=== PATIENT | male | born 1955 | race Caucasian/White ===

== ENCOUNTER 2017-11-25 11:58 | Observation (INO) | payer BC ==
[~2017-11-25] VITALS: Ht 172.7 cm; Wt 131.5 kg
--- NOTE | ~2017-11-25 | H ---
[address] [address] HISTORY AND PHYSICAL Name: SILVIA WOODARD Room: [address] Rosi Isaac#: [id number] Admission: 11/25/17 Attend Phys: Momo Patterson MD Discharge: 11/26/17 Date of : 53 Report #: [id number] THIS REPORT FOR: //name// Please refer to the History and Physical performed in the physician's office. By: 0651Medical Records Staff SUSAN /LIZZETH
[~2017-11-25 11:58] MED LIST: ACETAMINOPHEN-1 EAC1 PO; ADULT LOW DOSE81 MG PO; ARIXTRA; ASPIR 8181 MG PO; ASPIRIN325; BACTRIM DS TAB1 EACH PO; CELEBREX 200 M200 M1; COLACE100 MG; DILTIAZEM ER120 M1; FISH OIL 1,001000 M2 PO; GLUCOPHAGE500 MG OR; LOPRESSOR50 PO; MOBIC15 MG OR; MOBIC15 MG PO; NEURONTIN 300300 M1; NIACIN 500 MG500 M1 OR; NORCO 5-325 TA1 EACH; NORCO 5-325 TA1 EACH PO; OXYIR5 MG; PERCOCET 5-3251 EACH; PROTONIX40 M2 PO; SUPER B COMPLE1 EAC2 PO; TOPROL XL50 MG PO; TRAMADOL 50 MG50 MG PO; TYLENOL ES PO; VITAMIN D3 OR
[2017-11-25 12:46] VITALS: BP 165/79
[2017-11-25 13:04] LABS: HEMATOCRIT 45.7 % (42.0-52.0); HEMOGLOBIN 15.3 gm/dL (14.0-18.0); MCH 30.2 pg (26.0-34.0); MCHC 33.5 g/dL (28.0-37.0); MCV 90.1 fL (80.0-100.0); MPV 8.2 fl. (7.2-11.1); RBC 5.08 mil/uL (4.50-6.00); RDW-CV 13.8 % (10.5-14.5)
[2017-11-25] MEDS ORDERED: PROZAC 20 MG20 MG PO (13:05)
[2017-11-25 13:13] LABS: ANION GAP 8 mmol/L (7-16); BUN 19 mg/dL (7-18); CALCIUM 8.8 mg/dL (8.5-10.1); CHLORIDE 101 mmol/L (98-107); CO2 27 mmol/L (21-32); CREATININE 0.9 mg/dL (0.6-1.3); GLUCOSE 100 mg/dL (70-99); POTASSIUM 4.4 mmol/L (3.5-5.1); SODIUM 136 mmol/L (136-145)
[2017-11-25 13:14] LABS: APTT 27.3 Seconds (25.0-31.3); INR 0.9; PROTIME 9.4 Seconds (9.20-11.50)
[2017-11-25 13:17] LABS: ALBUMIN 4.1 g/dL (3.4-5.0); ALKALINE PHOSPHATASE 67 U/L (46-116); CHOLESTEROL 236 mg/dL (<200); HDL CHOLESTEROL 40 mg/dL (>40); SGOT 29 U/L (15-37); SGPT 47 U/L (30-65); TC:HDL 5.9 Ratio (Not establshd); TOTAL BILIRUBIN 0.5 mg/dL (<0.1-1.0); TOTAL PROTEIN 7.3 g/dL (6.4-8.2); TRIGLYCERIDE 466 mg/dL (<150); VLDL 93 mg/dL (<40)
[2017-11-25 13:18] LABS: SERUM ASSESSMENT Slight Lipemia
[2017-11-25 15:25] VITALS: BP 119/62
[2017-11-25 15:45] VITALS: BP 124/74
[2017-11-25 16:10] VITALS: BP 98/53
[2017-11-25 16:25] LABS: CK-MB MASS 2.2 ng/mL (<0.5-3.6); TROPONIN-I LEVEL <0.06 ng/mL (<0.06)
[2017-11-25 16:40] VITALS: BP 108/64
--- NOTE | 2017-11-25 16:48 | EKG ---
[place] [address] ELECTROCARDIOGRAM REPORT Name: SILVIA WOODARD Room: [address] ADM IN .R.#: [id number] Admission: 11/25/17 Attend Phys: Momo Patterson MD Discharge: Date of : 53 Report #: [id number] THIS REPORT FOR: //name// [facility] Test Date: 2017-11-25 Test Time: 13:08:57 Pat Name: SILVIA WOODARD Department: Room: [facility] Gender: M Verification Clerk: : 1955 Requested By: Momo Patterson Order Number: [id number] Reading MD: Vipin Walton Measurements Intervals [place] Rate: 53 P: -5 MS: 169 QRS: -4 QRSD: 107 T: 19 QT: 432 QTc: 406 Interpretive Statements Sinus rhythm RSR' in V1 or V2, right VCD Compared to ECG 12/06/2011 16:03:20 RSR' in V1 or V2 now present Supraventricular complex(es) no longer present Incomplete right bundle-branch block persists Electronically Signed On 11-25-2017 16:48:15 CDT by Vipin Walton [email or web address] <ELECTRONICALLY SIGNED> By: Vipin Walton MD, [facility] 11/25/17 1648 1308 1308 Vipin Walton MD, [facility] /EPI
[2017-11-25 17:30] VITALS: BP 116/66
--- NOTE | 2017-11-25 18:21 | NUR ---
PT ALERT/ORIENTED X4. VSS ON 2L NC. RIGHT GROIN SITE CDI WITHOUT HEMATOMA. REMAINS ON BEDREST PER ORDERS. AT BEDSIDE. EDUCATED ON SAFETY AND PLAN OF CARE. CALL LIGHT WITHIN REACH. WILL CONTINUE TO MONITOR
[2017-11-25] MEDS ORDERED: LOPRESSOR25 PO (18:44)
--- NOTE | 2017-11-25 19:25 | NUR ---
REVIEWED AND AGREE WITH THE ASSESMENT AND NOTES OF HESHAM HUSSEIN.
[2017-11-26 04:00] VITALS: BP 118/70
--- NOTE | 2017-11-26 04:10 | NUR ---
ASSUMED CARE OF PT AT 1900. PT IS ALERT AND ORIENTED. VSS. PERRLA. PT IS UP AD CARLITOS. NO SIGNS OF BLEEDING AT CATH SITE IN RIGHT GROIN. PT IS SINUS BRADYCARDIA ON THE TELEMETRY. PT IS RESTING COMFORTABLY IN BED. RESPIRATIONS ARE EVEN AND NONLABORED. WILL CONTINUE TO MONITOR PT.
[2017-11-26 04:50] LABS: HEMATOCRIT 41.5 % (42.0-52.0); HEMOGLOBIN 13.8 gm/dL (14.0-18.0); MCH 30.1 pg (26.0-34.0); MCHC 33.4 g/dL (28.0-37.0); MCV 90.2 fL (80.0-100.0); MPV 8.4 fl. (7.2-11.1); RBC 4.6 mil/uL (4.50-6.00); RDW-CV 13.8 % (10.5-14.5); WBC 6.4 thou/uL (4.0-11.0)
[2017-11-26 05:19] LABS: ALBUMIN 3.4 g/dL (3.4-5.0); CALCIUM 8.4 mg/dL (8.5-10.1); CREATININE 0.8 mg/dL (0.6-1.3); POTASSIUM 4.1 mmol/L (3.5-5.1); TOTAL PROTEIN 6.2 g/dL (6.4-8.2); TROPONIN-I LEVEL 0.49 ng/mL (<0.06)
[2017-11-26 08:00] VITALS: BP 124/69
[2017-11-26 09:48] VITALS: BP 124/69
[2017-11-26 10:00] VITALS: BP 124/69
[2017-11-26] MEDS ORDERED: BRILINTA90 MG PO (10:16)
--- NOTE | 2017-11-26 10:26 | NUR ---
PT ALERT, ORIENTED AND ALL VSS ON RA. C/O CHEST PRESSURE 2/10, STATES IS BETTER SINCE YESTERDAY. DENIES ANY OTHER C/O. RIGHT GROIN DRESSING CDI, NO HEMATOMA, EXTREMITY SENSATION INTACT. PLANS TO DC LATER TODAY. EDUCATED ON SAFETY AND PLAN OF CARE. CALL LIGHT IN REACH. WILL CONTINUE TO MONITOR.
--- NOTE | 2017-11-26 10:42 | EKG ---
[place] [address] ELECTROCARDIOGRAM REPORT Name: SILVIA WOODARD Room: [address] ADM IN .R.#: [id number] Admission: 11/25/17 Attend Phys: Momo Patterson MD Discharge: Date of : 53 Report #: [id number] THIS REPORT FOR: //name// [facility] Test Date: 2017-11-26 Test Time: 08:44:27 Pat Name: SILVIA WOODARD Department: Room: 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1955 Requested By: Momo Patterson Order Number: [id number] Harshal MD: Vipin Walton Measurements Intervals [place] Rate: 49 P: -6 AK: 172 QRS: 3 QRSD: 108 T: 21 QT: 447 QTc: 404 Interpretive Statements Sinus bradycardia RSR' in V1 or V2, right VCD Compared to ECG 11/25/2017 13:08:57 INTRAVENTRICULAR CONDUCTION DELAY right noted Electronically Signed On 11-26-2017 10:41:57 CDT by Vipin Walton [email or web address] <ELECTRONICALLY SIGNED> By: Vipin Walton MD, [facility] 11/26/17 1041 0844 0844 Vipin Walton MD, [facility] /EPI
--- NOTE | 2017-11-26 10:57 | CARD ---
[address] [address] CARDIAC CATH REPORT Name: YAMILETSILVIA Miesha Room: [address] IN [facility]#: [id number] Admission: 11/25/17 Attend Phys: Momo Patterson MD Discharge: Date of : 53 Report #: [id number] THIS REPORT FOR: //name// APPROVED REPORT Study performed: 11/25/2017 13:24:45 Patient Details Patient Status: Out-Patient Room #: The patient is a 62 year-old male Event Personnel Momo Patterson Microbiology Lab Assistant, Brenda Nicholson RN Foundry Metallurgist, Harpreet Avitia (R) Monitor, Nacho Arensa Scrub, Sandy Siddiqui RTCassius Scrub, Vipin Walton Roller Machine Operator; Mk Patterson Microbiology Lab Assistant Procedures Performed SOBEIDA Place w/wo Plasty Single LAD; left heart catheterization left ventriculography and selective coronary angiography Indication Dyspnea, Unstable angina Risk Factors Coronary Artery Disease Previous Procedures/Diagnoses Previous PCI Admission/Lab Medications/Medications given during procedure Aspirin Procedure Narrative The patient was brought electively to the Cardiac Catheterization Laboratory and was prepped and draped in a sterile manner. The right femoral was infiltrated with 1% Lidocaine subcutaneous anesthesia. A 6fr Ultimum Sheath sheath was inserted into the right femoral artery. Coronary angiography was performed using coronary diagnostic catheters. The right coronary system was accessed and visualized with a Diagnostic JR4 catheter. The left coronary system was accessed and visualized with a Diagnostic JL4 catheter. The left ventricle was accessed and visualized with a Diagnostic Angled Pigtail catheter. [address] [address] CARDIAC CATH REPORT Name: SILVIA WOODARD Room: [address] IN [facility].#: [id number] Admission: 11/25/17 Attend Phys: Momo Patterson MD Discharge: Date of : 53 Report #: [id number] Left ventricular/Aortic Valve gradient assessed via catheter pullback. Left ventriculogram was performed in MCGREGOR projection. Pre-demployment femoral angiogram was performed . Closure device was deployed with a Fr MynxGrip 6/7F. The patient tolerated the procedure well and there were no complications associated with the procedure. There was no hematoma. Intraoperative Conscious Sedation Sedation start time: 13:56 Case end Time: 14:51 Fentanyl 150 mcg Versed 2 mg Fluoro Time: 13.8 minutes Dose: DAP 104550 cGycm2 2946 mGy Contrast Type and Amount: Visipaque 320 ml Coronary Angiography The patient's coronary anatomy is right dominant. Diagnostic Cath Left Main Normal LAD 90% proximal tubular narrowing prior to the takeoff of the first diagonal branch. 75% mid LAD narrowing just distal to the first diagonal takeoff. 80% tubular narrowing at the apex. Diagonal 1 Normal and branch. Circumflex 10% plaquing proximally. OM1 Normal. OM2 Large and branch with a patent stent in the proximal portion of one of the large branches. There is a 70% narrowing distal to the stent. Right Coronary 20% narrowed proximally. There is a tubular 50% narrowing in the distal portion. R PDA Normal. RPLV Mild 10% plaquing in its midportion. Left Ventriculography The left ventricle is normal in size with mildly decreased contractility. The left ventricular ejection fraction is estimated to be 50-55%. Left ventricular wall motion abnormalities are present. There is no mitral insufficiency. Hemodynamics The aortic pressure is 122/66 mmHg with a mean of 85 mmHg. The left ventricular pressure is 113/9 mmHg with a mean of mmHg. The left ventricular end diastolic pressure is 20 [place] [address] CARDIAC CATH REPORT Name: JOSUÉARNOLSILVIA Room: [address] IN [facility]#: [id number] Admission: 11/25/17 Attend Phys: Momo Patterson MD Discharge: Date of : 53 Report #: [id number] PCI Technique Lesion Anticoagulation was achieved with Angiomax. Patient was preloaded with Angiomax IV 18 ml. Percutaneous coronary intervention was performed on the proximal left anterior descending artery segment. The lesion stenosis prior to intervention was 90% with CARLOS 3 flow. A 6F XB LAD 3.5 Guide Catheter was used to engage the ostium. A IG: BMW 190cm Interventional Guidewire was used to cross the lesion. BALLOON DILATION A Balloon catheter Trek RX 2.5 X 12 was inserted and inflated up to 16.00atm for 16seconds. STENT DEPLOYMENT A drug-eluting stent Xience Alpine RX 3.0X12 was inserted and inflated up to 12.00atm for 9seconds. Additional Inflation: 14.00atm for 7seconds. Final angiography reveals 0 % stenosis with CARLOS 3 flow. PCI Technique Lesion 2 Percutaneous Coronary Intervention was performed on the mid left anterior descending artery segment. Patient was preloaded with Angiomax IV 18 ml. Percutaneous coronary intervention was performed on the mid left anterior descending artery segment. The lesion stenosis prior to intervention was 75% with CARLOS 3 flow. A 6F XB LAD 3.5 Guide Catheter was used to engage the ostium. A IG: BMW 190cm Interventional Guidewire was used to cross the lesion. Balloon Dilation A Balloon catheter Trek RX 2.5 X 12 was inserted and inflated up to 10.00atm for 10seconds. Stent Deployment A drug-eluting stent Xience Alpine RX 2.25X12 was inserted and inflated up to 16.00atm for 12seconds. Additional Inflation: 18.00atm for 8seconds. Additional Inflation: 20.00atm for 8seconds. Post Stent Deployment Balloon Dilation A Balloon catheter NC Trek RX 2.5 X 8 was inserted and inflated up to 14.00atm for 9seconds. Additional Inflation: 16.00atm for 8seconds. Final angiography reveals 0 % stenosis with CARLOS 3 [place] [address] CARDIAC CATH REPORT Name: SILVIA WOODARD Room: [address] IN [facility]#: [id number] Admission: 11/25/17 Attend Phys: Momo Patterson MD Discharge: Date of : 53 Report #: [id number] #1 significant coronary arteries characterized by the following: A 90% proximal LAD stenosis with local thrombus suggested at the site with 75% mid vessel narrowing and 80% distal LAD narrowing B widely patent stent in the second marginal branch of the circumflex with 70% narrowing beyond the stent C dominant right coronary artery with 50% tubular distal narrowing #2 normal left ventricular systolic function, estimated ejection fraction being 60% with mild anterior hypokinesis 3 modest elevation of left ventricular end-diastolic pressure at rest 4 successful percutaneous coronary intervention with deployment of sequential drug-eluting stents at the sites of 90% proximal and 75% mid LAD stenosis with 0% residual narrowing at both sites following stent deployment and CARLOS-3 flow the distal vessel Recommendations Cardiac Risk Reduction Program Aggressive Medical Therapy Medications Administered Aspirin (any) Ticagrelor Diagnostic Cath Approved by: Momo Patterson MD Date/Time: 11/26/2017 10:53:50 <ELECTRONICALLY SIGNED> By: Vipin Walton MD, FACC 11/26/17 1057 1057 1057Vipin Walton MD, FACC /INF
--- NOTE | 2017-11-26 12:23 | NUR ---
PT DC HOME IN STABLE CONDITION WITH AT APPROX 1220. PT AND VERBALIZE UNDERSTANDING OF DC INSTRUCTIONS.
--- NOTE | 2017-11-26 19:42 | NUR ---
this rn has reviwed the assesment and notes of Chantelle merrill and agree.
--- NOTE | 2017-12-10 11:39 | D ---
[address] [address] DISCHARGE SUMMARY Name: JOSUÉARNOLSILVIA Room: [address] Rosi Isaac#: [id number] Admission: 11/25/17 Attend Phys: Momo Patterson MD Discharge: 11/26/17 Date of : 53 Report #: [id number] THIS REPORT FOR: //name// CC: Ramona Patterson DATE OF SERVICE: 11/26/2017 DISCHARGE DIAGNOSES: 1. Coronary artery disease. 2. Progressive angina. 3. Hypertension. 4. Hyperlipidemia. 5. History of paroxysmal supraventricular tachycardia. PROCEDURES DURING HOSPITALIZATION: 1. Coronary angiography. 2. Left ventriculography. 3. Left heart catheterization. 4. Percutaneous coronary intervention. HOSPITAL COURSE: The patient was brought to the Cardiac Catheterization Lab for elective left heart catheterization and coronary angiography. The patient had a known history of coronary disease and progressive symptoms. He was found to have 80% proximal to mid left anterior descending coronary artery stenosis for which he underwent intervention with placement of a 3.0 mm x 12 mm and a 2.25 mm x 12 mm Xience Alpine drug-eluting stent. The patient tolerated the procedure well and without complication. At that time, he was noted to have some mid to distal 50% right coronary artery narrowing that was not felt to be hemodynamically significant. The patient was placed on dual antiplatelet therapy and his home medications continued. He tolerated the procedure well and without complication. The patient was monitored overnight. He remained stable and was discharged the following day to home. The patient is to follow up in 2 weeks with the nurse practitioner. HOME MEDICATIONS ON DISCHARGE: Aspirin 81 mg daily, Prozac 20 mg daily, meloxicam 15 mg daily, metoprolol tartrate 25 mg b.i.d., Brilinta 90 mg b.i.d. DISPOSITION: Follow up cardiac nurse practitioner in 2 weeks. <ELECTRONICALLY SIGNED> By: Momo Patterson MD, FACC 12/10/17 1139 1829 1848[facility] Districtrayo Patterson MD, FACC /nt
== END 2017-11-26 12:25 | disposition home or self-care (01) ==
LOC: M.CL 11:58 → M.2W 15:02 → M.TBA-CV 15:02 → M.2W 15:50
PROVIDERS: ADMIT Internal Medicine Cardiovascular Disease
DX: I25.10 Atherosclerotic heart disease of native coronary artery without angina pectoris (principal); I10 Essential (primary) hypertension; E78.2 Mixed hyperlipidemia; I47.1 Supraventricular tachycardia; I49.3 Ventricular premature depolarization; I25.2 Old myocardial infarction; R06.00 Dyspnea, unspecified; E78.5 Hyperlipidemia, unspecified; Z95.5 Presence of coronary angioplasty implant and graft; Z98.890 Other specified postprocedural states; Z87.891 Personal history of nicotine dependence

== ENCOUNTER 2018-03-09 08:08 | Emergency (ER) | payer BC ==
[~2018-03-09] VITALS: Ht 172.7 cm; Wt 99.8 kg
[~2018-03-09 08:08] MED LIST changes: +BRILINTA90 MG PO; +LOPRESSOR25 PO; +PROZAC 20 MG20 MG PO
[2018-03-09] MEDS ORDERED: LOPRESSOR50 PO (08:24)
[2018-03-09] MEDS ORDERED: ZETIA10 MG PO (08:24)
[2018-03-09] MEDS ORDERED: BRILINTA90 MG PO (08:25)
[2018-03-09] MEDS ORDERED: FISH OIL 1,001000 M2 PO (08:25)
[2018-03-09] MEDS ORDERED: TRAMADOL 50 MG50 MG PO (08:25)
[2018-03-09] MEDS ORDERED: BLACK COHOSH40 M1 PO (08:26)
[2018-03-09] MEDS ORDERED: APAP650 PO (08:26)
[2018-03-09 08:53] LABS: ABSOLUTE EOSINOPHILS 0.1 thou/uL (0.0-0.7); ABSOLUTE LYMPHOCYTES 0.8 thou/uL (0.8-5.3); ABSOLUTE MONOCYTES 0.5 thou/uL (0.0-1.2); ABSOLUTE NEUTROPHILS 4.3 thou/uL (1.6-8.1); BASOPHILS 0.7 %; EOSINOPHILS 1.6 %; HEMATOCRIT 44.3 % (42.0-52.0); LYMPHOCYTES 13.6 %; MCH 30.3 pg (26.0-34.0); MCHC 33.8 g/dL (28.0-37.0); MCV 89.6 fL (80.0-100.0); MONOCYTES 8.9 %; MPV 8.1 fl. (7.2-11.1); NUCLEATED RBCS 0 /100WBC; PLATELET COUNT* 175 thou/uL (150-400); POLYS 75.2 %; RBC 4.94 mil/uL (4.50-6.00); RDW-CV 13.3 % (10.5-14.5); WBC 5.8 thou/uL (4.0-11.0)
[2018-03-09 09:07] LABS: APTT 29.2 Seconds (25.0-31.3); PROTIME 9.9 Seconds (9.20-11.50)
[2018-03-09 09:13] LABS: CALCIUM 8.4 mg/dL (8.5-10.1); CREATININE 0.8 mg/dL (0.6-1.3)
[2018-03-09 09:18] LABS: ALBUMIN 3.7 g/dL (3.4-5.0); TOTAL BILIRUBIN 0.8 mg/dL (<0.1-1.0); TOTAL PROTEIN 6.7 g/dL (6.4-8.2)
[2018-03-09] MEDS ORDERED: FLEXERIL PO (10:28)
[2018-03-09] MEDS ORDERED: NORCO 5-325 TA1 EACH PO (10:28)
[2018-03-09] MEDS ORDERED: MEDROLDOSEPACK PO (10:28)
[2018-03-09 10:36] VITALS: BP 116/62
== END 2018-03-09 10:38 | disposition home or self-care (01) ==
LOC: M.ERS 08:08
PROVIDERS: Family Medicine
DX: M54.5 Low back pain (principal); K21.9 Gastro-esophageal reflux disease without esophagitis; M32.9 Systemic lupus erythematosus, unspecified; Z88.8 Allergy status to other drugs, medicaments and biological substances

== ENCOUNTER 2020-11-07 09:09 | Emergency (ER) | payer BC ==
[~2020-11-07] VITALS: Ht 172.7 cm; Wt 122.5 kg
[~2020-11-07 09:09] MED LIST changes: +APAP650 PO; +BLACK COHOSH40 M1 PO; +FLEXERIL PO; +MEDROLDOSEPACK PO; +ZETIA10 MG PO
[2020-11-07] MEDS ORDERED: HYDROCODON-ACE1 EA11 PO (12:41)
[2020-11-07 13:54] VITALS: BP 107/55
== END 2020-11-07 13:55 | disposition home or self-care (01) ==
LOC: M.ERS 09:09
DX: S60.212A Contusion of left wrist, initial encounter (principal); S50.02XA Contusion of left elbow, initial encounter; S40.012A Contusion of left shoulder, initial encounter; S09.90XA Unspecified injury of head, initial encounter; K21.9 Gastro-esophageal reflux disease without esophagitis; Z79.82 Long term (current) use of aspirin; Z88.8 Allergy status to other drugs, medicaments and biological substances; Z79.899 Other long term (current) drug therapy; Z96.653 Presence of artificial knee joint, bilateral; W01.0XXA Fall on same level from slipping, tripping and stumbling without subsequent striking against object, initial encounter; Y93.89 Activity, other specified; Y92.89 Other specified places as the place of occurrence of the external cause; Y99.8 Other external cause status